=== PATIENT | female | born 1980 | race Caucasian/White ===

== ENCOUNTER 2019-09-13 09:13 | Emergency (ER) | payer OTHER, MEDICARE ==
[2019-09-13 10:17] LABS: ANION GAP 16.3 mmol/L (5-15); CHLORIDE,CL 104 mmol/L (98-115); SODIUM,NA 141 mmol/L (136-145)
--- NOTE | 2019-09-13 10:20 | EDM.PDOC ---
ED HPI GENERAL MEDICAL PROBLEM - General Chief Complaint: General Stated Complaint: near syncopy Time Seen by Provider: 09/13/19 10:15 Source of Information: Reports: Patient, Provider (Discussed case with Dr. Андерй Mariscal) History Limitations: Reports: No Limitations - History of Present Illness INITIAL COMMENTS - FREE TEXT/NARRATIVE: Patient is a 39-year-old female who presents to the emergency department this morning, sent from the clinic for evaluation. Patient states while she was in the waiting room of the clinic, had a sensation in her chest of strong heart beat and felt like she was going faint, patient states this lasted only a few seconds and resolved. She felt weak and clinic staff sent her to the ER. Upon presentation to the emergency department patient states she feels much better. Patient denies chest pain now or during event, shortness of breath, headache, nausea, vomiting, diarrhea, medication change, narcotics, or social drugs. Onset: Today Onset Time: 09:00 Duration: Minutes: Quality: Reports: Other (Palpitations and felt like fainting) Severity: Mild Improves with: Reports: Other (Spontaneously) Worsens with: Reports: None Associated Symptoms: Reports: No Other Symptoms, Seizure. Denies: Diaphoresis, Fever/Chills, Nausea/Vomiting, Shortness of Breath, Syncope - Related Data Allergies Allergy/AdvReac Type Severity Reaction Status Date / Time cefdinir Allergy Cannot Verified 09/13/19 09:45 Remember clindamycin Allergy Cannot Verified 09/13/19 09:45 Remember naproxen [From Aleve] Allergy Cannot Verified 09/13/19 09:45 Remember triamcinolone Allergy Cannot Verified 09/13/19 09:45 Remember antibiotic cream Allergy Cannot Uncoded 09/13/19 09:45 Remember Social & Family History - Tobacco Use Smoking Status *Q: Former Smoker Used Tobacco, but Quit: Yes Month/Year Tobacco Last Used: quit 2 years ago - Caffeine Use Caffeine Use: Reports: None - Recreational Drug Use Recreational Drug Use: No ED ROS GENERAL - Review of Systems Review Of Systems: Comprehensive ROS is negative, except as noted in HPI. Constitutional: Reports: Weakness HEENT: Reports: No Symptoms Respiratory: Reports: No Symptoms Cardiovascular: Reports: No Symptoms Endocrine: Reports: No Symptoms GI/Abdominal: Reports: No Symptoms : Reports: No Symptoms Musculoskeletal: Reports: No Symptoms Skin: Reports: No Symptoms Neurological: Reports: Weakness. Denies: Confusion, Dizziness, Headache, Numbness, Paresthesia, Pre-Existing Deficit, Seizure, Syncope, Trouble Speaking , Change in Speech Psychiatric: Reports: No Symptoms Hematologic/Lymphatic: Reports: No Symptoms Immunologic: Reports: No Symptoms ED EXAM, GENERAL - Physical Exam Exam: See Below Exam Limited By: No Limitations General Appearance: Alert, WD/WN, No Apparent Distress Eye Exam: Bilateral Eye: Normal Inspection Nose: Normal Inspection, Normal Mucosa, No Blood Throat/Mouth: Normal Inspection, Normal Oropharynx, No Airway Compromise Head: Atraumatic, Normocephalic Neck: Normal Inspection, Supple Respiratory/Chest: No Respiratory Distress, Lungs Clear, Normal Breath Sounds Cardiovascular: Normal Peripheral Pulses, Regular Rate, Rhythm, No Murmur GI/Abdominal: Normal Bowel Sounds, Soft, Non-Tender, No Organomegaly, No Distention, No Abnormal Bruit, No Mass Back Exam: Normal Inspection. No: CVA Tenderness (L), CVA Tenderness (R) Extremities: Normal Inspection, No Pedal Edema, Normal Capillary Refill Neurological: Alert, Oriented, CN II-XII Intact, No Motor/Sensory Deficits Psychiatric: Normal Affect, Normal Mood Skin Exam: Warm, Dry, Intact, Normal Color, No Rash Lymphatic: No Adenopathy Course - Vital Signs Last Recorded V/S: Last Vital Signs Temp 99.0 F 09/13/19 09:35 Pulse 89 09/13/19 09:35 Resp 17 09/13/19 09:35 BP 138/73 09/13/19 09:35 Pulse Ox 100 09/13/19 09:35 - Orders/Labs/Meds Orders: Active Orders 24 hr Category Date Time Status EKG Documentation Completion [RC] ASDIRECTED Care 09/13/19 09:32 Active Labs: Laboratory Tests 09/13/19 09/13/19 09/13/19 Range/Units 09:36 09:36 10:30 WBC 5.13 (5.00-10.00) 10^3/uL RBC 4.66 (3.80-5.50) 10^6/uL Hgb 13.0 (12.0-16.0) g/dL Hct 39.1 (37.0-47.0) % MCV 83.9 (82.0-92.0) fL MCH 27.9 (27.0-31.0) pg MCHC 33.2 (32.0-36.0) g/dL RDW 13.9 (11.5-14.5) % Plt Count 238 (150-400) 10^3/uL MPV 9.8 (7.4-10.4) fL Immature Gran % (Auto) 0.0 (0.0-5.0) % Neut % (Auto) 56.5 (50.0-70.0) % Lymph % (Auto) 32.0 (20.0-40.0) % [place] % (Auto) 9.0 H (2.0-8.0) % Eos % (Auto) 1.9 (1.0-3.0) % Baso % (Auto) 0.6 (0.0-1.0) % Immature Gran # (Auto) 0.00 (0.00-0.50) 10^3/uL Neut # (Auto) 2.90 (2.50-7.00) 10^3/uL Lymph # (Auto) 1.64 (1.00-4.00) 10^3/uL [place] # (Auto) 0.46 (0.10-0.80) 10^3/uL Eos # (Auto) 0.10 (0.10-0.30) 10^3/uL Baso # (Auto) 0.03 (0.00-0.10) 10^3/uL Sodium 141 (136-145) mmol/L Potassium 4.3 (3.3-5.3) mmol/L Chloride 104 (98-115) mmol/L Carbon Dioxide 25.0 (21.0-32.0) mmol/L Anion Gap 16.3 H (5-15) mmol/L BUN 22 (6-25) mg/dL Creatinine 0.80 (0.51-1.17) mg/dL Est Cr Clr Drug Dosing 90.90 mL/min Estimated GFR (MDRD) > 60 mL/min Glucose 96 (75 - 99) mg/dL Calcium 9.2 (8.7-10.3) mg/dL Total Bilirubin 0.3 (0.2-1.0) mg/dL AST 12 L (15-37) U/L ALT 23 (12-78) U/L Alkaline Phosphatase 55 (46-116) IU/L Total Protein 6.8 (6.4-8.2) g/dL Albumin 3.28 (3.00-4.80) g/dL Free T4 0.62 (0.59-1.17) ng/dL TSH, Ultra Sensitive 0.170 L (0.340-4.820) uIU/mL Specimen Type . Urine Color Light yellow (YELLOW) Urine Appearance Clear (CLEAR) Urine pH 5.5 (5.0-9.0) Ur Specific [place] 1.010 (1.005-1.030) Urine Protein Negative (NEGATIVE) mg/dL Urine Glucose (UA) Negative (NEGATIVE) mg/dL Urine Ketones Negative (NEGATIVE) mg/dL Urine Occult Blood Negative (NEGATIVE) Urine Nitrite Negative (NEGATIVE) Urine Bilirubin Negative (NEGATIVE) Urine Urobilinogen 0.2 (0.2-1.0) E.U./dL Ur Leukocyte Esterase Negative (NEGATIVE) - Re-Assessments/Exams Free Text/Narrative Re-Assessment/Exam: 09/13/19 11:20 Patient afebrile, vital signs stable, no palpitations, dizziness, or weakness in ER. Discussed case with Dr. Davis, patient will follow-up in her office for evaluation of subclinical hyperthyroidism. Departure - Departure Time of Disposition: 11:21 Disposition: Home, Self-Care 01 Condition: Good Clinical Impression: Subclinical hyperthyroidism - Discharge Information Instructions: Thyroid-Stimulating Hormone Test, Hyperthyroidism Referrals: Moni White MD [Primary Care Provider] - Forms: ED Department Discharge Additional Instructions: Follow-up with Dr. Davis as scheduled. Return to emergency department sooner symptoms continue or worsen. Sepsis Event Note - Evaluation Sepsis Screening Result: No Definite Risk - Focused Exam Vital Signs: Vital Signs Temp Pulse Resp BP Pulse Ox 09/13/19 09:35 99.0 F 89 17 138/73 100 Date Exam was Performed: 09/13/19 Time Exam was Performed: 11:19 - My Orders Last 24 Hours: My Active Orders 09/13/19 09:32 EKG Documentation Completion [RC] ASDIRECTED - Assessment/Plan Last 24 Hours: My Active Orders 09/13/19 09:32 EKG Documentation Completion [RC] ASDIRECTED Assessment:: Hyperthyroidism Plan: Follow-up at clinic
== END 2019-09-13 11:40 | disposition home or self-care (01) ==
LOC: KA.ED 09:13
DX: E05.90 Thyrotoxicosis, unspecified without thyrotoxic crisis or storm (principal); Z87.891 Personal history of nicotine dependence; Z88.8 Allergy status to other drugs, medicaments and biological substances; Z88.1 Allergy status to other antibiotic agents
CPT/HCPCS: 36415; 80053; 81003; 84439; 84443; 85025; 93005; 99284-25